=== PATIENT | male | born 2000 | race Caucasian/White ===

== ENCOUNTER 2022-04-07 09:48 | Emergency (ER) | payer OTHER ==
[~2022-04-07] VITALS: Ht 177.8 cm; Wt 117.9 kg
[2022-04-07] MEDS ORDERED: MIRTAZAPINE7.5 M1 PO (10:43)
[2022-04-07] MEDS ORDERED: Floxin10 ML RIGHTEAR ×2 (11:16)
== END 2022-04-07 11:42 | disposition home or self-care (01) ==
LOC: ER 09:48
DX: H60.91 Unspecified otitis externa, right ear (principal)
CPT/HCPCS: A9270

== ENCOUNTER 2023-11-10 09:18 | Inpatient (IN) | payer OTHER ==
[~2023-11-10] VITALS: Ht 177.8 cm; Wt 122.0 kg
[~2023-11-10 09:18] MED LIST: Floxin10 ML RIGHTEAR; MIRTAZAPINE7.5 M1 PO
[2023-11-10] MEDS ORDERED: FentaNYL Citrate 50 MCG/ML 2 ML Injection IV ONE (09:35)
[2023-11-10] MEDS ORDERED: NS 1,000 ML IV SCH ×2 (09:35→11:50)
[2023-11-10] MEDS ORDERED: Ondansetron HCl 2 MG / ML 2ML Vial IV ONE (09:35)
[2023-11-10 09:36] LABS: BASOPHILS ABSOLUTE AUTO 0.06 K/mm3 (0.00-0.23); BASOPHILS PERCENT AUTO 0 % (0-2); EOSINOPHILS ABSOLUTE AUTO 0.02 K/mm3 (0.00-0.68); EOSINOPHILS PERCENT AUTO 0 % (0-6); Hematocrit 43.8 % (37.0-53.0); Hemoglobin 15.5 g/dL (13.5-17.5); IMMATURE GRAN ABSOLUTE AUTO 0.09 K/mm3 (0.00-0.10); IMMATURE GRAN PERCENT AUTO 1 % (0-1); LYMPHOCYTES PERCENT AUTO 10 % (21-46); MONOCYTES ABSOLUTE AUTO 1.81 K/mm3 (0.16-1.47); MONOCYTES PERCENT AUTO 10 % (4-13); Mean Corpuscular HGB 30.8 pg (26.0-34.0); Mean Corpuscular HGB Conc 35.4 g/dL (31.5-36.5); Mean Corpuscular Volume 87 fL (80-100); Mean Platelet Volume 8.9 fL (9.1-12.4); NEUTROPHILS ABSOLUTE AUTO 14.76 K/mm3 (1.96-9.15); NEUTROPHILS PERCENT AUTO 79 % (41-73); Platelet Count 263 K/mm3 (150-400); RDW Standard Deviation 38.4 fL (35.1-46.3); Red Blood Cell Count 5.03 M/mm3 (4.30-5.90); White Blood Cell Count 18.64 K/mm3 (4.00-11.30)
[2023-11-10 09:52] LABS: Albumin, Blood 3.4 g/dL (3.4-5.0); Albumin/Globulin Ratio 0.9 (0.8-1.8); Bilirubin, Total 0.8 mg/dL (0.1-1.0); Bun/Creatinine Ratio 11.7 (12.0-20.0); Calcium, Blood 8.8 mg/dL (8.5-10.1); Creatinine, Blood 1.11 mg/dL (0.60-1.20); Globulin, Blood 3.9 g/dL (2.2-4.0); Potassium, Blood 3.6 mmol/L (3.5-5.5); Total Protein, Blood 7.3 g/dL (6.4-8.2)
[2023-11-10] MEDS ORDERED: Aspirin 325 MG Tab PO ONE (10:20)
[2023-11-10] MEDS ORDERED: Ondansetron HCl 2 MG / ML 2ML Vial IV PRN (11:50)
[2023-11-10] MEDS ORDERED: FentaNYL Citrate 50 MCG/ML 2 ML Injection IV PRN (11:50)
[2023-11-10] MEDS ORDERED: Acetaminophen 325 MG TABLET PO PRN (11:50)
[2023-11-10] MEDS ORDERED: Ampicillin Sod/Sulbactam Sod 3 GM in NS 100 ML IV SCH (12:00)
[2023-11-10 12:48] LABS: CHOL/HDL RATIO 2.5; Cholesterol 79 mg/dL (50-200); HDL Cholesterol 31 mg/dL (>39); LDL/HDL RATIO 1.2; Low Density Lipoprotein Chol 38 mg/dL (0-110); Triglycerides 49 mg/dL (30-140); Very Low Density Lipoprot Chol 9 mg/dL (6-28)
[2023-11-10 12:49] LABS: Anti-Xa UFH, PHA Monitoring <0.10 IU/mL; International Normalized Ratio 1.06; Prothrombin Time Results 11.3 Sec (9.7-11.5)
[2023-11-10] MEDS ORDERED: Heparin Sodium,Porcine/0.5 NS 500 ML IV SCH (13:05)
[2023-11-10] MEDS ORDERED: Heparin Sodium 5000 Units/ML 1ML MDV IV ONE ×2 (13:05→23:00)
[2023-11-10 14:34] VITALS: BP 132/92
[2023-11-10] MEDS ORDERED: VALP250 PO (14:56)
[2023-11-10] MEDS ORDERED: MISCSOL PO (14:57)
--- NOTE | 2023-11-10 16:51 | NUR ---
PT ARRIVED VIA GURNEY TO PCU13 FROM ER. SEE DOCUMENTED VS AND ADMIT ASSESSMENT. HEPARIN ORDERED IN ER, NOT STARTED. ESTABLISHED 2ND IV LINE AND HEPARIN STARTED ALONG WITH IVF PER ORDERS. PT A&OX4, AMBULATORY, CALM AND COOPERATIVE WITH CARE. PT ORIENTED TO ROOM, CALL LIGHT AND UNIT ROUTINES. PT EDUCATED BY THIS RN ABOUT PERICARDITIS, PNA AND THE MEDICATIONS PRESCRIBED TO HIM TO TREAT THESE DIAGNOSES. PT DENIES PAIN AND HAS NO QUESTIONS OR CONCERNS AT THIS TIME. CALL LIGHT IN REACH. WILL CONTINUE TO MONITOR AND GIVE REPORT TO NOC SHIFT RN. UPDATE NOTE PRN.
[2023-11-10 20:00] LABS: U Amphetamine Screen Not Detected; U Barbituate Screen Not Detected; U Benzodiazapine Screen Not Detected; U Buprenorphine Screen Not Detected; U Cannabinoids Screen Not Detected; U Cocaine Screen Not Detected; U Methadone Screen Not Detected; U Methamphetamine Screen Not Detected; U Opiates Screen Not Detected; U Oxycodone Screen Not Detected; U Phencyclidine Screen Not Detected
[2023-11-10 20:26] VITALS: BP 128/83
[2023-11-10] MEDS ORDERED: Lactobacil 2-S.Thermo-Bifido 1 1 Cap PO SCH ×2 (21:00)
[2023-11-10] MEDS ORDERED: Dose Adjust by Pharmacy XX STA (22:56)
[2023-11-10 23:17] VITALS: BP 135/90
[2023-11-11 03:12] VITALS: BP 127/85
--- NOTE | 2023-11-11 04:46 | NUR ---
SHIFT SUMMARY PATIENT IS ALERT AND ORIENTED X4, INDEPENDENT IN THE ROOM. SPO2 100% ON RA, DENIES SOB. HR SR 80s, BP STABLE, DENIES CP/PRESSURE BUT REPORTS NECK PAIN THAT RADIATES TO THE BACK, DENIES NEED FOR PAIN MEDICATION AND STATES IMPROVEMENT WITH PAIN THROUGH THE NIGHT. HEPARIN DRIP INF. CALL LIGHT IN REACH.
[2023-11-11 05:11] LABS: BASOPHILS ABSOLUTE AUTO 0.05 K/mm3 (0.00-0.23); BASOPHILS PERCENT AUTO 1 % (0-2); EOSINOPHILS ABSOLUTE AUTO 0.29 K/mm3 (0.00-0.68); EOSINOPHILS PERCENT AUTO 3 % (0-6); Hematocrit 43.5 % (37.0-53.0); Hemoglobin 15.1 g/dL (13.5-17.5); IMMATURE GRAN ABSOLUTE AUTO 0.08 K/mm3 (0.00-0.10); IMMATURE GRAN PERCENT AUTO 1 % (0-1); LYMPHOCYTES ABSOLUTE AUTO 2.33 K/mm3 (0.84-5.20); LYMPHOCYTES PERCENT AUTO 22 % (21-46); MONOCYTES ABSOLUTE AUTO 1.18 K/mm3 (0.16-1.47); MONOCYTES PERCENT AUTO 11 % (4-13); Mean Corpuscular HGB 30.8 pg (26.0-34.0); Mean Corpuscular HGB Conc 34.7 g/dL (31.5-36.5); Mean Corpuscular Volume 89 fL (80-100); NEUTROPHILS ABSOLUTE AUTO 6.83 K/mm3 (1.96-9.15); NEUTROPHILS PERCENT AUTO 63 % (41-73); Platelet Count 237 K/mm3 (150-400); RDW Coefficient Variation 12.1 % (11.7-14.2); RDW Standard Deviation 39.9 fL (35.1-46.3); White Blood Cell Count 10.76 K/mm3 (4.00-11.30)
[2023-11-11 05:38] LABS: Albumin/Globulin Ratio 0.8 (0.8-1.8); Bilirubin, Total 0.8 mg/dL (0.1-1.0); Bun/Creatinine Ratio 11.5 (12.0-20.0); Calcium, Blood 8.4 mg/dL (8.5-10.1); Creatinine, Blood 0.87 mg/dL (0.60-1.20); Globulin, Blood 3.9 g/dL (2.2-4.0); Potassium, Blood 3.9 mmol/L (3.5-5.5); Total Protein, Blood 6.9 g/dL (6.4-8.2)
[2023-11-11] MEDS ORDERED: Dose Adjust by Pharmacy XX STA (05:42)
[2023-11-11] MEDS ORDERED: Heparin Sodium 5000 Units/ML 1ML MDV IV ONE (05:45)
[2023-11-11] MEDS ORDERED: Pantoprazole Sodium 40 MG Injection IV SCH (06:00)
--- NOTE | 2023-11-11 07:45 | NUR ---
Initial assessment: Patient is lying in bed, he is resting with eyes closed-easily awakens. He is oriented x4. He reports mild pain to his neck at this time. HRR, he is SR in the 90s, he denies CP, pressure, or SOB at this time. LS CTA, Biox is high 90s on RA. BT+. PPP. VSS. Patient has heparin gtt and NS infusing. AM meds given at this time. He denies other needs. Dr. Norman is at the bedside to talk with the patient regarding treatment options and tests. MD recommends angiogram, patient would like to think about it.
[2023-11-11 07:50] VITALS: BP 118/78
[2023-11-11] MEDS ORDERED: NS 250 ML IV ONE (09:00)
[2023-11-11] MEDS ORDERED: NS 1,000 ML IV ONE ×2 (09:00→09:37)
[2023-11-11] MEDS ORDERED: Metoprolol Succinate 25 MG TABCR PO SCH (09:00)
[2023-11-11] MEDS ORDERED: Nitroglycerin 2 MG/20 ML BTL ONE (09:00)
[2023-11-11] MEDS ORDERED: NiCARdipine HCL 1,000 MCG/5 ML SYR ONE (09:00)
[2023-11-11] MEDS ORDERED: Aspirin 81 MG Chew PO SCH (09:00)
[2023-11-11] MEDS ORDERED: Enoxaparin 40 MG/0.4 ML SYR SC SCH (09:00)
[2023-11-11] MEDS ORDERED: Heparin Sodium 1000 Units/ML 10ML MDV ONE (09:00)
--- NOTE | 2023-11-11 11:30 | NUR ---
Update: Dr. Norman came to see the patient, he has elected for an angiogram to R/O any coronary issues that could be causing the elevated troponin. Patient is back from the procedure with a TR band in place, 12 cc air. Patients andiogram was clear. VSS. Patient denies other needs at this time. Call light in reach.
[2023-11-11] MEDS ORDERED: Acetaminophen325 M1 PO (13:00)
[2023-11-11] MEDS ORDERED: VISBIOME 112.51 EACH PO (13:04)
[2023-11-11] MEDS ORDERED: METO25ER PO (13:04)
[2023-11-11] MEDS ORDERED: OMEP20ER PO (13:05)
[2023-11-11 14:32] VITALS: BP 139/85
--- NOTE | 2023-11-11 15:21 | NUR ---
Discharge: Patient verbalized understanding of discharge instructions, [facility]. Patient ambulated to his car to go home.
== END 2023-11-11 14:49 | disposition home or self-care (01) | DRG 286 ==
LOC: ER 09:18 → PCU 11:47
PROVIDERS: Emergency Medicine; ADMIT Family Medicine
PROC: 3E03329 Introduction of Other Anti-infective into Peripheral Vein, Percutaneous Approach (ICD-10-PCS; 2023-11-10)
PROC: B2111ZZ Fluoroscopy of Multiple Coronary Arteries using Low Osmolar Contrast (ICD-10-PCS; principal; 2023-11-11)
DX: R07.9 Chest pain, unspecified (principal); A41.9 Sepsis, unspecified organism; J18.9 Pneumonia, unspecified organism; R79.89 Other specified abnormal findings of blood chemistry; E66.9 Obesity, unspecified; F39 Unspecified mood [affective] disorder; Z68.38 Body mass index [BMI] 38.0-38.9, adult; Z87.820 Personal history of traumatic brain injury
CPT/HCPCS: 36415; 71260; 76937; 80053; 80061; 83605; 84443; 84484; 85025; 85520; 85610; 85651; 85730; 86140; 87040; 87077; 93005; 93010; 93306; 93454; 96361; 96374; 96375; 99285-25; A9270; C1769; C1887; C1894; C9113; J0295; J1644; J2405; J3010; J7030; J7050; Q9967